=== PATIENT | female | born 1965 | race Caucasian/White ===

== ENCOUNTER 2019-08-14 18:02 | Emergency (ER) | payer SELFPAY ==
[2019-08-14] MEDS ORDERED: KETOROLAC TROMETHAMINE 60 MG/2 ML SDV IM ONE (19:00)
--- NOTE | 2019-08-14 19:04 | ER Document Report ---
HPI - HPI Time Seen by Provider: 08/14/19 18:56 Notes: CHIEF COMPLAINT: Right fourth finger pain for several months HPI: 54-year-old female who is right-hand dominant presenting to the emergency department complaining of right fourth finger pain over the last several months. Patient states that the pain does radiate into the hand no definitive injury. She states at times the finger will lock at the proximal IP joint with the finger in flexion. Has not seen PCP or orthopedics for this. Has not taken any medications for symptoms. ROS: See HPI - all other systems were reviewed and are otherwise negative Constitutional: no fever Integumentary: no rash Allergy: no hives Musculoskeletal: + extremity pain or swelling Neurological: no numbness/tingling, no weakness MEDICATIONS: I agree with the patient medications as charted by the RN. ALLERGIES: I agree with the allergies as charted by the RN. PAST MEDICAL HISTORY/PAST SURGICAL HISTORY: Reviewed and agree as charted by RN. SOCIAL HISTORY: Reviewed and agree as charted by RN. FAMILY HISTORY: No significant familial comorbid conditions directly related to patient complaint EXAM: Reviewed vital signs as charted by RN. CONSTITUTIONAL: Alert and oriented and responds appropriately to questions. Well-appearing; well-nourished, mild distress secondary to pain HEAD: Normocephalic; atraumatic EYES: Conjunctivae clear, sclerae non-icteric ENT: normal nose; no rhinorrhea; moist mucous membranes NECK: Supple without meningismus CARD: symmetric distal pulses RESP: Normal chest excursion without splinting or tachypnea ABD/GI: non-distended BACK: The back appears normal EXT: Normal ROM in all joints; no cyanosis, no effusions, no edema. There is no visible bruising or swelling to the right hand or fingers. Patient with mild tenderness over the proximal phalanx of the right fourth finger with radiation of that discomfort into the volar palm of the hand. Sensation is intact in the distal fingertips to touch with capillary refill less than 3 seconds SKIN: Normal color for age and race; warm; dry; good turgor; no acute lesions noted NEURO: Moves all extremities equally; Motor and sensory function intact PSYCH: The patient's mood and manner are appropriate. Grooming and personal hygiene are appropriate. MDM: 54-year-old female with likely tendinitis or trigger finger of the fourth finger of the right hand. Will obtain x-ray to evaluate bony structure of negative for acute findings will place in a splint for comfort, Voltaren for pain, orthopedic referral Past Medical History - Social History Smoking Status: Unknown if Ever Smoked Family History: Reviewed & Not Pertinent Vertical Provider Document - INFECTION CONTROL TRAVEL OUTSIDE OF THE [place] IN LAST 30 DAYS: No Course - Re-evaluation Re-evalutation: 08/14/19 19:26 X-ray does not show evidence of bony injury. Will splint for comfort, follow-up orthopedics - Vital Signs Vital signs: Temp Pulse Resp BP Pulse Ox 97.9 F 76 16 133/80 H 98 08/14/19 18:32 08/14/19 18:32 08/14/19 18:32 08/14/19 18:32 08/14/19 18:32 Discharge - Discharge Clinical Impression: Tendinitis of finger of right hand Condition: Stable Disposition: HOME, SELF-CARE Additional Instructions: Ice the finger twice daily for 5 to 10 minutes at a time do not place ice directly on the skin. Use the finger splint for comfort do not wear it to bed. Take the anti-inflammatories for pain and inflammation. Follow-up closely with orthopedics for further evaluation and definitive management call for appointment Prescriptions: Diclofenac Sodium [Voltaren 50 Mg Tablet.] 50 mg PO BID #20 tablet. Referrals: JOSE ENRIQUE MONTALVO DO [ACTIVE STAFF] - Follow up as needed
--- NOTE | 2019-08-14 19:28 | RADIOLOGY REPORT (SQ) ---
EXAM DESCRIPTION: HAND RIGHT 3 VIEWS COMPLETED DATE/TIME: 08/14/2019 7:14 pm REASON FOR STUDY: right 4th finger pain COMPARISON: None. EXAM PARAMETERS: NUMBER OF VIEWS: Three views. TECHNIQUE: AP, lateral and oblique radiographic images acquired of the right hand. LIMITATIONS: None. FINDINGS: MINERALIZATION: Normal. BONES: Possible nondisplaced fracture tuft of the 4th digit. JOINTS: No effusions. SOFT TISSUES: No soft tissue swelling. No foreign body. OTHER: No other significant finding. IMPRESSION: Possible nondisplaced fracture tuft of the 4th digit. Is there history of trauma? TECHNICAL DOCUMENTATION: JOB ID: [id number] 2010 [employer]- All Rights Reserved Reading location - IP/workstation name: [email or web address]
[2019-08-14 20:17] VITALS: BP 124/83
== END 2019-08-14 20:18 | disposition home or self-care (01) ==
LOC: ER 18:02
DX: M77.9 Enthesopathy, unspecified (principal); M79.644 Pain in right finger(s); M79.89 Other specified soft tissue disorders
CPT/HCPCS: 99283; 96372; 73130; J1885